=== PATIENT | male | born 1980 | race Caucasian/White ===

== ENCOUNTER 2021-12-28 17:58 | Emergency (ER) | payer BC ==
[~2021-12-28] VITALS: Ht 182.9 cm; Wt 86.2 kg
[2021-12-28] MEDS ORDERED: CEPHALEXIN500 MG PO (18:40)
== END 2021-12-28 18:45 | disposition home or self-care (01) ==
LOC: ED 17:58
DX: S61.411A Laceration without foreign body of right hand, initial encounter (principal); W26.9XXA Contact with unspecified sharp object(s), initial encounter
CPT/HCPCS: A9270